=== PATIENT | male | born 1970 | race Caucasian/White ===

== ENCOUNTER 2021-05-23 18:09 | Emergency (ER) | payer MEDICARE, MEDICAID ==
[~2021-05-23] VITALS: Ht 175.3 cm; Wt 86.2 kg
[~2021-05-23 18:09] MED LIST: ACETAMINOPHEN-1 EAC1 PO; BACTRIM DS TAB1 EACH PO; KEFLEX500 MG PO; NORCO 5-325 TA1 EAC1 PO; NORCO 5-325 TA1 EACH PO; PREDNISONE 20 M20 MG PO
[2021-05-23 18:59] LABS: ABSOLUTE EOSINOPHILS 0.1 thou/uL (0.0-0.7); ABSOLUTE MONOCYTES 0.8 thou/uL (0.0-1.2); ABSOLUTE NEUTROPHILS 4.2 thou/uL (1.6-8.1); BASOPHILS 0.7 %; EOSINOPHILS 0.9 %; HEMATOCRIT 43.7 % (42.0-52.0); HEMOGLOBIN 15.1 gm/dL (14.0-18.0); LYMPHOCYTES 28.1 %; MCH 28.9 pg (26.0-34.0); MCHC 34.5 g/dL (28.0-37.0); MCV 83.8 fL (80.0-100.0); MPV 9.6 fl. (7.2-11.1); NUCLEATED RBCS 0 /100WBC; PLATELET COUNT* 193 thou/uL (150-400); POLYS 59.3 %; RBC 5.21 mil/uL (4.50-6.00); RDW-CV 13.6 % (10.5-14.5)
[2021-05-23 19:05] LABS: CALCIUM 8.6 mg/dL (8.5-10.1); CREATININE 0.8 mg/dL (0.6-1.3); POTASSIUM 3.6 mmol/L (3.5-5.1)
[2021-05-23 19:16] LABS: ALBUMIN 3.2 g/dL (3.4-5.0); TOTAL BILIRUBIN 0.7 mg/dL (<0.1-1.0); TOTAL PROTEIN 7.4 g/dL (6.4-8.2)
[2021-05-23] MEDS ORDERED: PREDNISONE 10 M10 MG PO (21:47)
[2021-05-23] MEDS ORDERED: PROAIR HFA8.5 GM INH (21:47)
[2021-05-23 22:00] VITALS: BP 121/83
--- NOTE | 2021-05-24 11:18 | EKG ---
[place] [address] ELECTROCARDIOGRAM REPORT Name: LOAN STAPLETON Room: [facility]#: [id number] Admission: 05/23/21 Attend Phys: Discharge: 05/23/21 Date of : 66 Date of Service: 05/23/211820 Report #: [id number] THIS REPORT FOR: //name// [facility] ED Test Date: 2021-05-23 Test Time: 18:21:07 Pat Name: LOAN STAPLETON Department: Room: Gender: Process Machine Operator: [facility] : 1970 Requested By: Marta Schwarz Order Number: [id number] MD: Alexander Akers Measurements Intervals [place] Rate: 67 P: 70 WA: 137 QRS: 36 QRSD: 102 T: 29 QT: 380 QTc: 401 Interpretive Statements Sinus rhythm Abnormal R-wave progression, early transition Borderline ST elevation, anterior leads No previous ECG available for comparison Electronically Signed On 05-24-2021 11:18:02 CLINICAL PROJECT ASSISTANT by Alexander Akers [email or web address] <ELECTRONICALLY SIGNED> By: Alexander Akers MD, [facility] 05/24/21 1118 20 20 Alexander Akers MD, [facility] /EPI
== END 2021-05-23 22:00 | disposition home or self-care (01) ==
LOC: M.ERS 18:09
PROVIDERS: Physician Assistant
DX: U07.1 COVID-19 (principal); R06.02 Shortness of breath